=== PATIENT | female | born 1940 | race Caucasian/White ===

== ENCOUNTER → 2024-12-07 09:14 | Outpatient (CLI) | payer MEDICARE, SELFPAY | PROVIDERS: Visit Provider Physician Assistant | DX: R30.0 Dysuria (principal) | CPT/HCPCS: 87086 ==

== ENCOUNTER 2025-06-04 07:21 | Day surgery (SDC) | payer MEDICARE, SELFPAY ==
[2025-05-28 11:51] VITALS: BMI 29.9
--- NOTE | 2025-06-04 | PATH_ITS ---
[facility] Accession Number: [id number] No. of containers..02 Tissue . 01 Material submitted: . PART A: small bowel - SMALL BOWEL PART B: gastrointestinal site - GASTRIC . 01 Diagnosis: A. SMALL BOWEL, BIOPSY: Duodenal mucosa with no diagnostic abnormality. Negative for active inflammation, features of sprue, dysplasia, or malignancy. . B. STOMACH, BIOPSY: Gastric antral and body mucosa with no diagnostic abnormality. No evidence of Helicobacter organisms on H/E stain. Negative for intestinal metaplasia. Negative for dysplasia or malignancy. MRV 06/07/2025 1508 Local . 01 Electronically signed: . Jai Galeano MD, PhD, Pathologist NPI- [id number] . 01 Gross description: . A. Received in formalin with two identifiers and small bowel are two lew, soft tissue fragments 0.2 to 0.3 cm in greatest dimension, submitted entirely in A1. B. Received in formalin with two identifiers and gastric are two lew, soft tissue fragments 0.2 to 0.3 cm in greatest dimension, submitted entirely in B1. ([id number]) /SE 06/05/2025 1556 Local . 01 Pathologist provided ICD-10: D50.8, R19.5 . 01 CPT . 082583, 285528 Specimen Comment: A courtesy copy of this report has been sent to [facility] Performed at: [address] [id number] MD Tremayne Escoto MD Phone: [phone]
[2025-06-04 07:54] VITALS: BP 119/75; PULSE 75; RESP 16; TEMP 36.4; O2SAT 97
[2025-06-04] MEDS: LACTATED RINGERS 1,000 ML 42 ML IV (08:08)
--- NOTE | 2025-06-04 08:18 | PM.HP.IH.1 ---
History of Present Illness History of Present Illness Date Patient Seen: 06/04/25 Chief complaint: EGD & Colonoscopy w/poss bx's Narrative: Iron deficiency anemia diagnosed in March and placed on iron. Subsequently found to have positive fit test. [facility] Medical History (Updated 06/04/25 @ 08:21 by Homar Hsu MD) Asthma Hypothyroid Breast cancer, right Diverticular disease Prediabetes Acquired hypothyroidism TIA (transient ischemic attack) Idiopathic peripheral neuropathy Osteopenia HTN (hypertension) HLD (hyperlipidemia) Bradycardia PAF (paroxysmal atrial fibrillation) Surgical History (Updated 05/28/25 @ 11:51 by Janay Olmedo RN) S/P tympanostomy tube placement (2022) Status post right breast lumpectomy (01/2017) S/P TAVR (transcatheter aortic valve replacement) (09/19/24) Social History Smoking Status: Former smoker alcohol intake: current Meds Home Medications and Allergies Home Medications ?Medication ?Instructions ?Recorded ?Confirmed ?Type apixaban 5 mg tablet (Eliquis) 5 mg PO BID 12/07/24 06/04/25 History aspirin 81 mg tablet,delayed 81 mg PO DAILY 12/07/24 06/04/25 History release azilsartan medoxomil 40 mg tablet 40 mg PO DAILY 12/07/24 06/04/25 History (Edarbi) chlorthalidone 25 mg tablet 25 mg PO DAILY 12/07/24 06/04/25 History fluticasone propionate 50 spray intranasal 12/07/24 12/07/24 History mcg/actuation nasal spray,suspension gabapentin 300 mg capsule 600 mg PO 12/07/24 12/07/24 History levothyroxine 50 mcg tablet mcg PO 12/07/24 12/07/24 History levothyroxine 75 mcg tablet mcg PO 12/07/24 12/07/24 History simvastatin 40 mg tablet 40 mg PO 12/07/24 12/07/24 History Allergies Allergy/AdvReac Type Severity Reaction Status Date / Time levofloxacin (From Levaquin) Allergy Severe Anaphylaxis Verified 06/04/25 07:49 amlodipine AdvReac Severe leg Verified 06/04/25 07:49 swelling hydralazine AdvReac Severe GI upset, Verified 06/04/25 07:49 headache. dipyridamole (From Aggrenox) AdvReac Intermediate Headache Verified 06/04/25 07:49 Exam Vital Signs (past 8 hours): - 06/04/25 07:54 Temperature 97.6 F Pulse Rate 75 Respiratory Rate 16 Blood Pressure 119/75 Pulse Oximetry 97 Oxygen Delivery Method Room Air Oxygen Delivery Method Room Air Narrative Exam Narrative: Oropharynx free of lesions Chest clear to auscultation percussion Cardiac exam reveals no S3 or murmur Assessment & Plan Assessment and plan (1) Iron deficiency anemia: Status: Acute Plan History of iron-deficiency anemia now on iron with a positive fit test. Need for EGD and colonoscopy to rule out these as a source of blood loss. She has not had a follow-up CBCs since being placed on iron and this will be ordered. In addition, if EGD and colonoscopy are negative we may need to consider pill camera to rule out small bowel source. Time-Based Coding :: [TOTAL MINUTES] spent with patient and on the chart (including review of chart, obtaining history, exam, reviewing outside data, placing orders, documenting exam and treatment plan, and counseling patient) on [DATE]. PROFEE Pattern Marker Document charge(s): No
--- NOTE | 2025-06-04 08:21 | PM.OP.EC ---
Operative Date/Time/Diagnoses Date of procedure: 06/04/25 Time of procedure: 09:02 Pre-op diagnosis: Indication iron-deficiency anemia Post-op diagnosis: same Procedure & Clinicians Study performed: Colonoscopy Same procedure(s) as scheduled: Yes Indications: Iron-deficiency anemia Surgeon: Homar Hsu Anesthesia Type: MAC +/- Procedure Notes Procedure in detail: After informed consent was obtained the patient was placed in left lateral decubitus position. The video upper scope was placed into the oropharynx and with the patient's help swallowed into the esophagus. The esophagus stomach and duodenal were carefully examined. On withdrawal, retroflexed view the GE junction was performed. The scope was removed. The patient tolerated the procedure well. The patient was then turned to the colonoscope substituted. This was placed into the rectum and advanced cecum. Preparation was good. On slow withdrawal mucosa was carefully evaluated. The scope was removed. The patient tolerated procedure well. Blood loss none Complications none Medication mac Findings EGD 1. Normal esophagus 2. Striped erythema in the distal stomach biopsies taken to rule out Helicobacter Three. Normal duodenal bulb and sweep with some patchy erythema biopsies taken to rule out celiac Colonoscopy 1. Extensive sigmoid diverticulosis 2. Otherwise negative colonoscopy to cecum Patient should get a repeat CBC today before going home. She can restart her Eliquis. Pending the result of CBC might want to consider pill camera Estimated Blood Loss: 0 Complications: none
[2025-06-04 09:00] VITALS: BP 82/46; PULSE 62; RESP 16; TEMP 36.2; O2SAT 95
[2025-06-04 09:05] VITALS: BP 98/52; PULSE 62; RESP 18; O2SAT 92
[2025-06-04 09:07] VITALS: BP 102/66; PULSE 97; RESP 20; TEMP 36.3; O2SAT 92
[2025-06-04 09:35] LABS: Add Manual Diff / Slide Review NO; Hematocrit 31.0 % (36-46); Hemoglobin 10.7 g/dL (12.0-16.0); Lymphocytes Absolute Auto 1100 /uL (1100-4500); Mean Corpuscular HGB Conc 34.6 % (30-36); Mean Corpuscular Hemoglobin 32.5 PG (26-34); Mean Corpuscular Volume 93.8 fL (80-100); Platelet Count 187 X10^3/uL (150-400)
== END 2025-06-04 10:16 | disposition home or self-care (01) ==
PROVIDERS: Referring Provider Family Medicine; Visit Provider Internal Medicine Gastroenterology
PROC: 0DJ08ZZ Inspection of Upper Intestinal Tract, Via Natural or Artificial Opening Endoscopic (ICD-10-PCS; CPT 43239; principal; 2025-06-04 08:30)
PROC: 0DJD8ZZ Inspection of Lower Intestinal Tract, Via Natural or Artificial Opening Endoscopic (ICD-10-PCS; CPT 45378; 2025-06-04 08:30)
DX: D50.9 Iron deficiency anemia, unspecified (principal); K57.30 Diverticulosis of large intestine without perforation or abscess without bleeding; Z87.891 Personal history of nicotine dependence
CPT/HCPCS: 43239; 45378; 85025; J2704; J7120